=== PATIENT | male | born 1945 | race Caucasian/White ===

== ENCOUNTER 2018-07-26 07:37 | Outpatient (CLI) | payer MEDICARE, OTHER ==
[2018-07-26] VITALS (18 sets, daily range): BP systolic 105–124; BP diastolic 67–81
== END 2018-07-26 23:59 | disposition home or self-care (01) ==
LOC: CARD DIAG 07:37
PROVIDERS: ATTEND Internal Medicine Interventional Cardiology
DX: R42 Dizziness and giddiness (principal)
CPT/HCPCS: 93660

== ENCOUNTER 2025-04-10 10:25 | Outpatient (CLI) | payer MEDICARE, OTHER ==
--- NOTE | 2025-04-10 11:45 | RADIOLOGY REPORT ---
PROCEDURE: MR MRI HEAD INDICATION: HEADACHE, UNSPECIFIED EXAM DATE: 04/10/2025 10:36 AM COMPARISON: None TECHNIQUE: MRI of the brain without intravenous contrast. FINDINGS: Diffusion weighted images of the brain demonstrate no evidence of acute infarction. There is no evidence of acute intracranial hemorrhage, extra-axial collection, mass effect, midline shift, herniation or hydrocephalus. The ventricles, sulci and cisterns appear age appropriate. Moderate generalized cerebral volume loss with scattered foci of increased T2/FLAIR signal in the subcortical, deep, and periventricular white matter of both cerebral hemispheres compatible with moderate chronic small vessel ischemia. The major vascular flow voids are present. The visualized paranasal sinuses and mastoid air cells are clear. The surrounding soft tissues and osseous structures are unremarkable. IMPRESSION: Hemosiderin deposition throughout the basal cisterns suggesting prior subarachnoid hemorrhage. Suggest a CT angiogram to better assess for any possible underlying aneurysm.
== END 2025-04-10 23:59 | disposition home or self-care (01) ==
LOC: MRI02 10:25
PROVIDERS: ATTEND Nurse Practitioner Family
DX: R51.9 Headache, unspecified (principal)
CPT/HCPCS: 70551

== ENCOUNTER 2025-04-30 14:46 | Outpatient (CLI) | payer MEDICARE, OTHER ==
[2025-04-30 12:10] LABS: CREATININE 0.89 MG/DL (0.60-1.10); TOTAL CARBON DIOXIDE 27.7 MMOL/L (24-32); eGFR 82 ML/MIN
--- NOTE | 2025-04-30 13:01 | RADIOLOGY REPORT ---
INDICATION: ABNORMAL BRAIN MRI EXAM DATE: 04/30/2025 12:14 PM COMPARISON: MR MRI HEAD on DOS: 04/10/25 TECHNIQUE: CTA head without and with intravenous contrast. 3D image postprocessing was performed on a dedicated workstation and images were used for interpretation and reporting. RADIATION DOSE: Angio: CTDIvol: 6.83 mGy, DLP: 133.58 mGy*cm Contrast: 100 cc Omnipaque 350. FINDINGS: CTA head: There is normal enhancement of the visualized distal internal carotid, anterior and middle cerebral arteries. There is a normal anterior communicating artery complex. There are bilateral posterior communicating arteries. The vertebral, basilar, cerebellar and posterior cerebral arteries are within normal limits. The early parenchymal enhancement is grossly unremarkable. The visualized intracranial venous structures are grossly unremarkable. IMPRESSION: No evidence for an aneurysm.
== END 2025-04-30 23:59 | disposition home or self-care (01) ==
LOC: RAD 14:46
PROVIDERS: ATTEND Student in an Organized Health Care Education/Training Program
DX: R90.89 Other abnormal findings on diagnostic imaging of central nervous system (principal)
CPT/HCPCS: 36415; 70496; 80053; Q9967